=== PATIENT | female | born 1985 | race American Indian/Alaskan Native ===

== ENCOUNTER 2024-11-19 11:10 | Emergency (ER) | payer OTHER, SELFPAY ==
[2024-11-19 11:24] VITALS: BP 142/96; PULSE 74; RESP 18; TEMP 36.6; O2SAT 96; BMI 35.0
--- NOTE | 2024-11-19 11:27 | EDNOTE_ITS ---
ED General RME/HPI General Chief complaint: Abdominal Pain Stated complaint: STOMACH AND BACK PAIN Time Seen by Provider: 11/19/24 11:15 Arrival date/time: 11/19/24 11:10 CC: Epigastric pain HPI ongoing intermittent for the past 24 hours has a long history of reflux is on omeprazole for heartburn but states that is lately gotten worse. Is a has a follow-up outpatient referral to the head of ethics and compliance from PCP. Patient also takes antidepressants. Patient denies nausea vomiting no diarrhea in the past 48 hours. Episode of pain was severe last night took a bunch of antacids , and fell asleep still with the pain woke up this morning feeling better and then the pain returned. Patient denies diarrhea or black tarry stools. Related Data Home Medications ?Medication ?Instructions ?Recorded ?Confirmed Vitamin * 1 tab PO QDAY SUPPL EMENT 09/05/17 #0 tabs ferrous sulfate 325 mg (65 mg 325 mg PO BIDWM AMENIA # 0 tabs 09/05/17 iron) tablet (Feosol) omeprazole 20 mg capsule,delayed 20 mg PO QDAY HEARTBU RN ##0 09/05/17 release Previous Rx's ?Medication ?Instructions ?Recorded Hydrocodone/Acetaminophen * (NORCO 1 tab PO Q4H PRN AB DOMINAL PAIN 09/07/17 5/325 *) #30 tabs docusate sodium 100 mg capsule 100 mg PO BID #14 caps 09/07/17 (Colace) cyclobenzaprine 7.5 mg tablet 30 mg (4 x 7.5 mg) PO HS #10 tabs 11/05/18 indomethacin 50 mg capsule 50 mg PO BID #30 caps 11/05 Allergies Allergy/AdvReac Type Severity Reaction Status Date / Time No Known Allergies Allergy Verified 11/19/24 11:13 Review of Systems Review of Systems Narrative Review of Systems: GEN: No fever, no chills, no weight loss EYES: No discharge, no visual changes, no pain HEENT: No ear pain, no congestion, no sore throat PULM: No shortness of breath, no cough, no congestion CV: No chest pain, no dyspnea on exertion, no palpitations GI: No nausea, no vomiting, no diarrhea, + pain, no constipation : No frequency, no urgency, no dysuria MUSC/SKEL: No joint pain, no back pain SKIN: No rash PSYCH: No hallucinations, no depression HEME/LYMPH: No easy bleeding or bruising tendencies NEURO: No weakness, no headache Past Medical History Past Medical History OTHER HISTORY: Negative Blood Transfusions Social History SMOKING STATUS: Never smoker ED Exam Narrative Physical exam: [General: Obese in mild discomfort but not in any acute distress Head normocephalic HEENT: Within acceptable limits Neck is supple nontender Chest equal chest rise nontender to palpation Respiratory: Clear to auscultation no wheezes crackles or rubs CV: Rate rhythm is regular no murmurs rubs or clicks Abdomen is distended secondary to body habitus soft, epigastric pain no reflexive guarding or rebound tenderness no right upper or left upper quadrant pain no lower abdominal tenderness with palpation. Back: No CVA tenderness no spinous process tenderness from cervical spine thoracic and lumbar spine Skin: Intact no petechiae rash induration ulceration or crepitus Extremities: Moving all extremity against resistance cap refill less than 2 seconds neurosensory intact Neuro: Awake alert oriented x3 Glascow coma 15 no focal deficits] Course Course Course Narrative: Reassessment of this patient at 1226, the patient had considerable relief from the viscous lidocaine. Quality Measures none Orders Category Date Time Status B-Type Natriuretic Peptide Stat Lab 11/19/24 11:33 Completed CBC Stat Lab 11/19/24 11:33 Completed Comprehensive Metabolic Panel Stat Lab 11/19/24 11:33 Results Drug Screen,Urine Stat Lab 11/19/24 11:42 Completed Lipase Stat Lab 11/19/24 11:33 Results Magnesium Stat Lab 11/19/24 11:33 Results Partial Thromboplastin Time Stat Lab 11/19/24 11:33 Completed Prothrombin Time with INR Stat Lab 11/19/24 11:33 Completed Urinalysis Stat Lab 11/19/24 11:42 Completed Lidocaine 2% Viscous [Xylocaine 2% Viscous] Med 11/19/24 11:27 Discontinued 15 ml PO X1 ONE Pantoprazole [Protonix] Med 11/19/24 13:26 Discontinued 40 mg PO X1 ONE mg Hyd/Al Hyd/Tiara Susp [Maalox Susp] Med 11/19/24 11:27 Discontinued 30 ml PO X1 ONE Vital Signs Vital signs: Vital Signs Temperature 97.9 F 11/19/24 11:24 Pulse Rate 74 11/19/24 11:24 Respiratory Rate 18 11/19/24 11:24 Blood Pressure 142/96 H 11/19/24 11:24 Pulse Oximetry (%) 96 11/19/24 11:24 Oxygen Delivery Method Room Air 11/19/24 11:24 [facility] Patient data External records reviewed:: [facility] previous records Clinical information provided by:: patient Social determinants that could affect healthcare access:: none Patient has the following chronic illnesses:: Depression acid reflux How is presenting disease/condition affected by chronic disease/condition?: e xacerbated by Evaluation data The following diagnostics were reviewed and interpreted by me:: lab results and radiology exam(s) Lab and/or radiology exams considered but not ordered:: CBC shows no acute leukocytosis anemia thrombocytopenia Coags within acceptable limits urine is contaminated but no indication of a UTI. Lipase is normal CMP shows no acute electrolyte imbalances renal impairment transaminitis or T. bili elevation. Interpretation Summary: At this point I suspect this is GERD, the patient continues to take the famotidine on a regular basis. Patient given instructions for bland diet no food for 2 hours before going to bed no late night snacking. Medications Medications considered but not ordered:: None Medication administrations:: Medication Administration History Discontinued Medications Al Hydrox/Mg Hydrox/Simethicone (Mg Hyd/Al Hyd/Tiara (Maalox Reg) Susp 30 Ml Udc) 30 ml PO X1 ONE Stop: 11/19/24 11:28 Last Admin: 11/19/24 11:56 Dose: 30 ml Documented By: AIMEE Lidocaine HCl (Lidocaine Viscous 2% 15 Ml Udc) 15 ml PO X1 ONE Stop: 11/19/24 11:28 Last Admin: 11/19/24 11:56 Dose: 15 ml Documented By: AIMEE Pantoprazole Sodium (Pantoprazole 40 Mg Tablet) 40 mg PO X1 ONE Stop: 11/19/24 13:27 Last Admin: 11/19/24 13:31 Dose: 40 mg Documented By: ZRAA None Consultations Consultation(s) initiated? (list below): No Diagnosis Differential Diagnosis ED Complaint MDM: Gastritis GERD acid reflux Most likely diagnosis given after review of the tests above:: Acid reflux Admission Indicated Admission indicated?: not indicated Explain why admission is indicated or not indicated:: Stable for discharge Admission Request Was there a request for admission?: No Disposition Plan Disposition Plan: Discharge Discharge Attestation Discharge Attestation: The patient and all family members were given an opportunity to ask questions and understood the discharge instructions. Discharge instructions specifically effects, indications for sooner follow up or return to the emergency department, and the expected course of current diagnosis. Patient condition: Stable Medical Decision Making Differential Diagnosis Differential Diagnosis: Gastritis GERD acid reflux Lab Data 11/19/24 11:33 11/19/24 11:33 Labs: Lab Results 11/19/24 11/19/24 Range/Units 11:33 11:42 WBC 7.3 (3.6-11.0) Thou/mm3 RBC 4.40 (4.00-5.20) Miln/mm3 Hgb 12.4 (12.0-16.0) g/dL Hct 37.1 (36.0-46.0) % MCV 84 (80-100) fL MCH 28.2 (25.0-35.0) pg MCHC 33.4 (31.0-37.0) g/dl RDW Std Deviation 45.1 (36.4-46.3) fL Plt Count 362 (140-440) Thou/mm3 Neut % (Auto) 46 (37-80) % Lymph % (Auto) 43 (10-50) % [place] % (Auto) 7 (0-12) % Eos % (Auto) 3 (0-10) % Baso % (Auto) 0 (0-2.5) % Neut # (Auto) 3.4 (1.8-7.7) Thou/mm3 Lymph # (Auto) 3.1 (1.0-4.8) Thou/mm3 [place] # (Auto) 0.5 (0.0-0.8) Thou/mm3 Eos # (Auto) 0.3 (0.0-0.5) Thou/mm3 Baso # (Auto) 0.0 (0.0-0.2) Thou/mm3 Immature Gran # (Auto) 0.02 H (0.00-0.00) Thou/mm3 Absolute Nucleated RBC 0.00 (0.00-0.00) Thou/mm3 Immature Gran % 0 (0-0) % Nucleated RBC % 0 (0) /100 WBC PT 10.7 (9.0-12.2) Seconds INR 1.0 (0.9-1.3) APTT 26.2 (22.0-36.0) Seconds Sodium 141 (136-145) mMol/L Potassium 4.0 (3.4-5.1) mMol/L Chloride 108 H (98-107) mMol/L Carbon Dioxide 25.8 (20.0-31.0) mMol/L Anion Gap 7 (7-16) BUN 10 (9-23) mg/dL Creatinine 0.8 (0.6-1.3) mg/dL Estim Creat Clear Calc 113.4 (>60) mL/min eGFR > 60 (60 - ) See Note BUN/Creatinine Ratio 13 (12-20) Ratio Glucose 115 H (74-106) mg/dL Calculated Osmolality 281 (275-295) Calcium 8.6 (8.3-10.6) mg/dL Corrected Calcium 8.6 (8.5-10.1) mg/dL Magnesium 2.0 (1.6-2.6) mg/dL Total Bilirubin 0.3 (0.3-1.2) mg/dL AST 19 (0-34) U/L ALT 15 (10-49) U/L B-Natriuretic Peptide < 20 (0-100) pg/mL Total Protein 6.6 (5.7-8.2) gm/dL Albumin 4.0 (3.5-5.0) gm/dL Globulin 2.6 (2.3-3.5) gm/dL Albumin/Globulin Ratio 1.5 (1.2-2.2) Lipase 28 (12-53) U/L Ur Collection Type Clean Catch Urine Color Lt-Yellow (Lt Yel-Yel) Urine Clarity Turbid A (Clear/Hazy) Urine pH 6.0 (5.0-7.0) Ur Specific Reading 1.011 (1.001-1.035) Urine Protein Negative (Neg - Trace) Urine Glucose (UA) Negative (Negative) Urine Ketones Negative (Negative) Urine Blood 1+ A (Negative) Urine Nitrite Negative (Negative) Urine Bilirubin Negative (Negative) Urine Urobilinogen (Auto) Negative (0.0-1.0) mg/dL Ur Leukocyte Esterase Positive (Negative) Urine RBC 10 H (0-3) /hpf Urine WBC 21 H (0-5) /hpf Ur Squamous Epith Cells 12 H (0-5) /hpf Urine Bacteria None (None) Urine Opiates Screen Negative (Negative) Urine Fentanyl Screen Negative (Negative) Ur Barbiturates Screen Negative (Negative) U Amphetamin/Meth Scrn Negative (Negative) U Benzodiazepines Scrn Negative (Negative) U Cocaine Metab Screen Negative (Negative) U Marijuana (THC) Screen Positive A (Negative) Discharge Plan Plan Patient Disposition: HOME (Self Care) Patient condition on transfer: Stable Prescriptions/Referrals Prescriptions/Med Rec: No Action Vitamin * 1 EACH tablet 1 tab PO QDAY Qty: 0 ferrous sulfate [Feosol] 1 TAB tablet 325 mg PO BIDWM Qty: 0 omeprazole 20 MG capsule,delayed release(DR/EC) 20 mg PO QDAY Qty: 0 Hydrocodone/Acetaminophen * (NORCO 5/325 *) 1 TAB tablet 1 tab PO Q4H PRN (Reason: ABDOMINAL PAIN) Qty: 30 0RF docusate sodium [Colace] 100 MG capsule 100 mg PO BID Qty: 14 0RF indomethacin 50 mg capsule 50 mg PO BID Qty: 30 0RF Rx Instructions: administer with food or milk cyclobenzaprine 7.5 mg tablet 30 mg PO HS Qty: 10 0RF Referrals: Bayron Martin MD [Referring Provider] - In 1 week No Primary/Family,Physician [Primary Care Provider] - In 1 week Problem List Clinical Impression: Acid reflux Patient/Caregiver Discharge Instructions Other Activity Instructions:: Continue to take the famotidine, do not miss the follow-up appointment with gastroenterology regarding her condition as stated. Avoid all greasy spicy and fatty foods, continue with bland diet. No food for 2 hours before going to bed no late night snacking. Education Materials: ED GERD (Adult) Print Language: Swazi Stand Alone Forms: Kellee Award Info., Work/School Release, Patient Portal Info Letter PA/CRYPTOLOGIST Supervising Physician PA/CRYPTOLOGIST Supervising Physician: Nick Ortiz ENP
[2024-11-19 11:46] LABS: Basophils % (Auto) 0 % (0-2.5); Eosinophils # (Auto) 0.3 Thou/mm3 (0.0-0.5); Eosinophils % (Auto) 3 % (0-10); Hematocrit 37.1 % (36.0-46.0); Hemoglobin 12.4 g/dL (12.0-16.0); Immature Granulocytes % (Auto) 0 % (0-0); Immature Granulocytes Auto 0.02 Thou/mm3 (0.00-0.00); Lymphocytes # (Auto) 3.1 Thou/mm3 (1.0-4.8); Lymphocytes % (Auto) 43 % (10-50); Mean Corpuscular HGB Conc 33.4 g/dl (31.0-37.0); Mean Corpuscular Hemoglobin 28.2 pg (25.0-35.0); Mean Corpuscular Volume 84 fL (80-100); Monocytes # (Auto) 0.5 Thou/mm3 (0.0-0.8); Monocytes % (Auto) 7 % (0-12); Neutrophils # (Auto) 3.4 Thou/mm3 (1.8-7.7); Neutrophils % (Auto) 46 % (37-80); Nucleated Red Blood Cell % 0 /100 WBC (0); Platelet Count 362 Thou/mm3 (140-440); RDW Standard Deviation 45.1 fL (36.4-46.3); White Blood Count 7.3 Thou/mm3 (3.6-11.0)
[2024-11-19 11:49] LABS: Collection Type, Urine Clean Catch
[2024-11-19 11:53] LABS: Bilirubin,Urine Negative (Negative); Blood,Urine 1+ (Negative); Clarity,Urine Turbid (Clear/Hazy); Color,Urine Lt-Yellow (Lt Yel-Yel); Glucose, Urine Negative (Negative); Ketones,Urine Negative (Negative); Leukocyte Esterase,Urine Positive (Negative); Nitrite,Urine Negative (Negative); Protein,Urine Negative (Neg - Trace); RBC,Urine 10 /hpf (0-3); Specific Gravity,Urine 1.011 (1.001-1.035); Squamous Epithelial Cell,Urine 12 /hpf (0-5); Urobilinogen,Urine Negative mg/dL (0.0-1.0); WBC,Urine 21 /hpf (0-5)
[2024-11-19] MEDS: LIDOCAINE VISCOUS 2% 15 ML UDC PO (11:56)
[2024-11-19] MEDS: MG HYD/AL HYD/SIME (Maalox Reg) SUSP 30 ML UDC PO (11:56)
[2024-11-19 12:02] LABS: Partial Thromboplastin Time 26.2 Seconds (22.0-36.0); Prothrombin Time 10.7 Seconds (9.0-12.2)
[2024-11-19 12:08] LABS: B-Type Natriuretic Peptide < 20 pg/mL (0-100)
[2024-11-19 13:30] LABS: Amphetamine/Methamp Scrn,U Negative (Negative); Barbiturate Screen,Urine Negative (Negative); Benzodiazepines Screen,Urine Negative (Negative); Benzoylecgonine Screen, Ur Negative (Negative); Fentanyl Screen,Urine Negative (Negative); Opiate Screen,Urine Negative (Negative); THC Screen,Urine Positive (Negative)
[2024-11-19] MEDS: PANTOPRAZOLE 40 MG TABLET PO (13:31)
[2024-11-19 13:49] LABS: Alanine Aminotransferase 15 U/L (10-49); Albumin/Globulin Ratio 1.5 (1.2-2.2); Anion Gap 7 (7-16); Aspartate Amino Transferase 19 U/L (0-34); BUN/Creatinine Ratio 13 Ratio (12-20); Bilirubin,Total 0.3 mg/dL (0.3-1.2); Blood Urea Nitrogen 10 mg/dL (9-23); Calcium 8.6 mg/dL (8.3-10.6); Calcium (Corrected) 8.6 mg/dL (8.5-10.1); Carbon Dioxide 25.8 mMol/L (20.0-31.0); Chloride 108 mMol/L (98-107); Creatinine (Component) 0.8 mg/dL (0.6-1.3); Estimated Creatinine Clearance 113.4 mL/min (>60); Globulin 2.6 gm/dL (2.3-3.5); Glucose 115 mg/dL (74-106); Lipase 28 U/L (12-53); Osmolality,Calculated 281 (275-295); Sodium 141 mMol/L (136-145); Total Protein 6.6 gm/dL (5.7-8.2); eGFR > 60 See Note
[2024-11-19 13:59] VITALS: BP 143/98
[2024-11-19 14:30] LABS: Alkaline Phosphatase 71 U/L (46-116)
== END 2024-11-19 14:15 | disposition home or self-care (01) ==
PROVIDERS: Registered Nurse General Practice; Emergency Provider Emergency Medicine
DX: K21.9 Gastro-esophageal reflux disease without esophagitis (principal); Z79.899 Other long term (current) drug therapy
CPT/HCPCS: 36415; 80053; 80307; 81001; 83690; 83735; 83880; 85025; 85610; 85730; 99283; J3490; A9270